=== PATIENT | female | born 1995 | race Two or more races ===

== ENCOUNTER 2024-06-02 22:56 | Emergency (ER) | payer MEDICAID, SELFPAY ==
[2024-06-02 22:58] VITALS: BMI 34.0
[2024-06-02 23:07] VITALS: BP 142/86; PULSE 71; RESP 20; TEMP 36.6; O2SAT 98
[2024-06-02] MEDS: TETRACAINE PF OP SOL 0.5% 4 ML DRPETTE 1 DROP LEFT EYE (23:36)
[2024-06-03] MEDS: FLUORESCEIN SOD 1 MG STRP BOTH EYES (00:02)
[2024-06-03] MEDS: TOBRAMYCIN OP SOL 0.3% 5 ML BTL LEFT EYE (00:03)
--- NOTE | 2024-06-03 00:04 | EDNOTE_ITS ---
ED Eye Problem RME/HPI General Chief complaint: Eye Problems Stated complaint: LEFT EYE PAIN AND HEADACHE Time Seen by Provider: 06/02/24 23:21 Arrival date/time: 06/02/24 22:56 28F with no significant PMH presents to ED with L eye pain after her brother accidentally poked her in the eye. Patient denies vision changes. Patient does wear contacts. Limitations: no limitations Related Data Home Medications ?Medication ?Instructions ?Recorded ?Confirmed ferrous sulfate 325 mg (65 mg 325 mg PO QDAY 07/31/17 07/31/17 iron) tablet (Iron (ferrous sulfate)) Previous Rx's ?Medication ?Instructions ?Recorded tramadol 37.5 mg-acetaminophen 325 1 tab PO TID PRN pa in #15 tabs 11/07/21 mg tablet (Ultracet) cyclobenzaprine 5 mg tablet 5 mg PO TID PRN muscle spa sm #30 09/30/22 tabs Allergies Allergy/AdvReac Type Severity Reaction Status Date / Time latex Allergy Rash Verified 06/02/24 22:58 Past Medical History Past Medical History NEUROLOGIC: Negative Neurological Disorders CARDIAC: Negative Cardiac Disorders or Congestive Heart Failure RESPIRATORY: Negative Chronic Obstructive Pulmonary Disease (COPD) GASTROINTESTINAL: Negative Gastrointestinal Disorders GENITOURINARY: Negative Genitourinary Disorders or Renal Disease MUSCULOSKELETAL: Negative Musculoskeletal Disorders ENDOCRINE: Negative Endocrine Disorders, Diabetes Mellitus Type 1 or Diabetes Mellitus Type 2 HEMATOLOGIC: Negative Blood Disorders OTHER HISTORY: Negative Autoimmune Disease Family History FAMILY HISTORY: Negative Family Cancer, Family Surgery or Family Anesthesia Reaction Surgical History SURGICAL: Negative Section Social History SMOKING STATUS: Never smoker ED Exam General Limitations: Present no limitations General appearance: Present alert and in no apparent distress Head Head exam: Present atraumatic Eye Eye exam: Present normal appearance, PERRL and EOMI ENT ENT exam: Present normal exam, normal oropharynx and mucous membranes moist Neck Neck exam: Present normal inspection, full ROM and trachea midline Chest Chest inspection: Present normal inspection and symmetric chest wall rise Respiratory Respiratory exam: Present normal lung sounds bilaterally Cardiovascular Cardiovascular exam: Present regular rate, normal rhythm and normal heart sounds Abdominal Exam Abdominal exam: Present soft and normal bowel sounds Extremities Exam Extremities exam: Present normal inspection and full ROM Back Exam Back exam: Present normal inspection and full ROM Neurological Exam Neurological exam: Present alert, oriented X3 and CN II-XII intact Psychiatric Psychiatric exam: Present normal affect and normal mood Skin Skin exam: Present warm, dry, intact and normal color Course Quality Measures none Orders Category Date Time Status Jaimes Lamp to Bedside X1 Care 06/02/24 23:22 Active Fluorescein Sodium [[id number]] Med 06/02/24 23:45 Discontinued 1 mg BOTH EYES X1 ONE TETRACAINE Op Michell 0.5% [Pontocaine Op Michell 0.5%] Med 06/02/24 23:22 Disc ontinued 1 drop LEFT EYE X1 ONE Tobramycin Op Michell 0.3% [Tobrex Op Michell 0.3%] Med 06/02/24 23:51 Discontinued See Dose Instructions LEFT EYE X1 ONE Vital Signs Vital signs: Vital Signs Temperature 97.9 F 06/02/24 23:07 Pulse Rate 71 06/02/24 23:07 Respiratory Rate 20 06/02/24 23:07 Blood Pressure 142/86 H 06/02/24 23:07 Pulse Oximetry (%) 98 06/02/24 23:07 Oxygen Delivery Method Room Air 06/02/24 23:07 O2 at 98% on RA and WNLs Eye MDM Narrative MDM Narrative:: 28F with no significant PMH presents to ED with L eye pain after her brother accidentally poked her in the eye. Patient denies vision changes. Patient does wear contacts. Physical exam reveals L eye conjunctivitis. No discharge. Normal pupil response and EOM. Patient is afebrile, calm, and alert. Wood's lamp exam reveals L corneal abrasion. Meds and alcoholic counselor given. Patient data External records reviewed:: [facility] [place] previous records Clinical information provided by:: patient Social determinants that could affect healthcare access:: none Patient has the following chronic illnesses:: none How is presenting disease/condition affected by chronic disease/condition?: no chronic disease Evaluation data The following diagnostics were reviewed and interpreted by me:: other (specify) (none) Lab and/or radiology exams considered but not ordered:: not ordered Interpretation Summary: n/a Medications / Prescriptions Medications or Prescriptions considered but not ordered:: ordered Medication administrations:: Medication Administration History Discontinued Medications Fluorescein Sodium (Fluorescein Sod 1 Mg Strp) 1 mg BOTH EYES X1 ONE Stop: 06/02/24 23:46 Tetracaine HCl (Tetracaine Pf Op Michell 0.5% 4 Ml Drpette) 1 drop LEFT EYE X1 ONE Stop: 06/02/24 23:23 Last Admin: 06/02/24 23:36 Dose: 1 drop Documented By: Tobramycin Sulfate (Tobramycin Op Michell 0.3% 5 Ml Btl) 0 drop LEFT EYE X1 ONE Stop: 06/02/24 23:52 above Consultations Consultation(s) initiated? (list below): No Diagnosis Eye Problem Differential Diagnosis: corneal abrasion, conjunctivitis, acute iritis, hyphema, periorbital cellulitis, subconjunctival hemorrhage, glaucoma, corneal ulcer and ruptured globe Most likely diagnosis given after review of the tests above:: corneal abrasion Admission Indicated Admission indicated?: not indicated Admission Request Was there a request for admission?: No Disposition Plan Disposition Plan: Discharge Discharge Attestation Discharge Attestation: The patient and all family members were given an opportunity to ask questions and understood the discharge instructions. Discharge instructions specifically effects, indications for sooner follow up or return to the emergency department, and the expected course of current diagnosis. Patient condition: Stable Discharge Plan Plan Patient Disposition: HOME (Self Care) Disposition Comment: Stable Prescriptions/Referrals Prescriptions/Med Rec: No Action tramadol-acetaminophen [Ultracet] 37.5-325 mg tablet 1 tab PO TID PRN (Reason: pain) Qty: 15 0RF ferrous sulfate [Iron (ferrous sulfate)] 325 mg (65 mg iron) Tablet 325 mg PO QDAY cyclobenzaprine 5 mg tablet 5 mg PO TID PRN (Reason: muscle spasm) Qty: 30 0RF Problem List Clinical Impression: Corneal abrasion Patient/Caregiver Discharge Instructions Education Materials: ED Corneal Abrasion Additional Instructions: Please follow-up with PCP within 24-48 hours and return immediately if symptoms worsen. See eye doctor soon. Use med 2 drops 4x per day for 5 days. Print Language: Kazakh Stand Alone Forms: Patient Portal Info Letter HEMANTH/CHELY Supervising Physician HEMANTH/CHELY Supervising Physician: Dr. Moreira
== END 2024-06-03 00:11 | disposition home or self-care (01) ==
PROVIDERS: Emergency Provider Emergency Medicine; PCP Family Medicine
DX: S05.02XA Injury of conjunctiva and corneal abrasion without foreign body, left eye, initial encounter (principal); W50.0XXA Accidental hit or strike by another person, initial encounter
CPT/HCPCS: 99283

== ENCOUNTER 2024-12-05 14:10 | Emergency (ER) | payer MEDICAID, SELFPAY ==
[2024-12-05 14:27] VITALS: BP 118/75; PULSE 78; RESP 16; TEMP 37; O2SAT 98
--- NOTE | 2024-12-05 14:44 | PD.EDWOUND ---
ED Wound/Laceration-RME/HPI General Chief Complaint: Wound/Laceration Stated Complaint: LAC ON R) PALM Time Seen by Provider: 12/05/24 14:44 Source: patient Arrival date/time: 12/05/24 14:10 29-year-old female with no known medical history presents to the emergency room with a chief complaint of a laceration to her right palm while cutting meat 1 hour ago. Mode of arrival: ambulatory Limitations: no limitations Related Data Home Medications ?Medication ?Instructions ?Recorded ?Confirmed ferrous sulfate 325 mg (65 mg 325 mg PO QDAY 07/31/17 07/31/17 iron) tablet (Iron (ferrous sulfate)) Previous Rx's ?Medication ?Instructions ?Recorded tramadol 37.5 mg-acetaminophen 325 1 tab PO TID PRN pain #15 tabs 11/07/21 mg tablet (Ultracet) cyclobenzaprine 5 mg tablet 5 mg PO TID PRN muscle spasm #30 09/30/22 tabs Allergies Allergy/AdvReac Type Severity Reaction Status Date / Time latex Allergy Rash Verified 12/05/24 14:13 Review of Systems Review of Systems Systems Reviewed: All systems reviewed, normal except as documented Constitutional Constitutional: Reports system reviewed and no additional complaints, except as documented, Denies fatigue, Denies fever(s), Denies headache(s) and Denies weakness Eyes Eyes: Reports system reviewed and no additional complaints, except as documented, Denies blurry vision and Denies change in vision ENT Ears, Nose, Mouth, and Throat: Reports system reviewed and no additional complaints, except as documented, Denies otalgia, Denies headache(s), Denies nasal congestion, Denies throat swelling and Denies vertigo Cardiovascular Cardiovascular: Reports system reviewed and no additional complaints, except as documented, Denies chest pain, Denies dyspnea and Denies dyspnea on exertion Respiratory Respiratory: Reports system reviewed and no additional complaints, except as documented, Denies chest congestion, Denies cough, Denies dyspnea, Denies dyspnea on exertion and Denies wheezing Gastrointestinal Gastrointestinal: Reports system reviewed and no additional complaints, except as documented, Denies abdominal pain, Denies cramping, Denies nausea and Denies vomiting Genitourinary Genitourinary: Reports system reviewed and no additional complaints, except as documented Musculoskeletal Musculoskeletal: Reports system reviewed and no additional complaints, except as documented and Denies back pain Integumentary/Breasts Skin/Breast: Reports system reviewed and no additional complaints, except as documented and Reports wounds Neurologic Neurologic: Reports system reviewed and no additional complaints, except as documented, Denies confusion, Denies headache(s), Denies lack of coordination, Denies vertigo and Denies weakness Psychiatric Psychiatric: Reports system reviewed and no additional complaints, except as documented, Denies anxiety, Denies confusion, Denies depression, Denies paranoia, Denies suicidal ideation and Denies tactile hallucinations Endocrine Endocrine: Reports system reviewed and no additional complaints, except as documented and Denies fatigue Hematologic/Lymphatic Hematologic/Lymphatic: Reports system reviewed and no additional complaints, except as documented and Denies lymphadenopathy Allergic/Immunologic Allergic/Immunologic: Reports system reviewed and no additional complaints, except as documented, Denies throat swelling, Denies urticaria and Denies wheezing Past Medical History Past Medical History NEUROLOGIC: Negative Neurological Disorders CARDIAC: Negative Cardiac Disorders or Congestive Heart Failure RESPIRATORY: Negative Chronic Obstructive Pulmonary Disease (COPD) GASTROINTESTINAL: Negative Gastrointestinal Disorders GENITOURINARY: Negative Genitourinary Disorders or Renal Disease MUSCULOSKELETAL: Negative Musculoskeletal Disorders ENDOCRINE: Negative Endocrine Disorders, Diabetes Mellitus Type 1 or Diabetes Mellitus Type 2 HEMATOLOGIC: Negative Blood Disorders OTHER HISTORY: Negative Autoimmune Disease Family History FAMILY HISTORY: Negative Family Cancer, Family Surgery or Family Anesthesia Reaction Surgical History SURGICAL: Negative Section Social History SMOKING STATUS: Never smoker ED Exam General Limitations: Present no limitations General appearance: Present alert and in no apparent distress Head Head exam: Present atraumatic Eye Eye exam: Present normal appearance, PERRL and EOMI ENT ENT exam: Present normal exam, normal oropharynx and mucous membranes moist Neck Neck exam: Present normal inspection, full ROM and trachea midline Chest Chest inspection: Present normal inspection and symmetric chest wall rise Respiratory Respiratory exam: Present normal lung sounds bilaterally Cardiovascular Cardiovascular exam: Present regular rate, normal rhythm and normal heart sounds Abdominal Exam Abdominal exam: Present soft and normal bowel sounds Extremities Exam Extremities exam: Present normal inspection and full ROM Expanded Upper Extremity Exam Shoulder exam: Present normal inspection Arm exam: Present normal inspection Elbow exam: Present normal inspection Forearm/Wrist exam: Present normal inspection Hand exam: Present laceration Hand L/R front image:  1. laceration (0.5 cm laceration to the center of the palm) Back Exam Back exam: Present normal inspection and full ROM Neurological Exam Neurological exam: Present alert, oriented X3 and CN II-XII intact Psychiatric Psychiatric exam: Present normal affect and normal mood Skin Skin exam: Present warm, dry, intact and normal color Course Quality Measures none Orders Category Date Time Status Set Up Suture Tray STAT Care 12/05/24 14:38 Active Wound Care NOW Care 12/05/24 14:38 Active Lidocaine 1% 20 ml [Xylocaine 1% 20 ML] Med 12/05/24 14:38 Discontinued 20 ml INFL X1 ONE TET,DIP/PERT AC (Adult)-Tdap [Boostrix Adult (Tdap) Med 12/05/24 14:38 Discontinued Vacc] 0.5 ml IMI .ONCE ONE Vital Signs Vital signs: Vital Signs Temperature 98.6 F 12/05/24 14:27 Pulse Rate 78 12/05/24 14:27 Respiratory Rate 16 12/05/24 14:27 Blood Pressure 118/75 12/05/24 14:27 Pulse Oximetry (%) 98 12/05/24 14:27 Oxygen Delivery Method Room Air 12/05/24 14:27 PROCEDURES: Laceration Laceration 1: Site: hand Side (If applicable): right Size (cm): 0.5 Description: linear Depth: simple, single layer Local Anesthetic: lidocaine 1% Amount of anesthesia used (mL): 3 Pre-repair: irrigated extensively Skin layer closed with: nylon Suture size (cm): 4-0 Number of sutures: 2 Technique: simple, interrupted Wound / Laceration MDM Narrative MDM Narrative:: 29-year-old female with no known medical history presents to the emergency room with a chief complaint of a laceration to her right palm while cutting meat 1 hour ago. The laceration occured 1 hour ago The mechanism of injury was from a kitchen knife while cutting meat Sensation is intact. There is full ROM. There is no exposed tendons. No foreign bodies. Lidocaine 1% was used for anesthesia. The wound was irrigated extensively with normal saline. 2 sutures were placed. A dressing was placed. There were no complications. Patient was educated to keep the area clean and dry for 24 hours, then clean daily with soap and water. Patient was educated to return for any signs of infection including swelling pain redness pus or fever and to make an appointment with primary care provider in 48 hours. Patient was educated to follow up with primary or return to emergency room for suture removal in the next 7-10 days. Patient data External records reviewed:: [facility] previous records Clinical information provided by:: patient Social determinants that could affect healthcare access:: none Patient has the following chronic illnesses:: No chronic illness How is presenting disease/condition affected by chronic disease/condition?: no chronic disease Evaluation data The following diagnostics were reviewed and interpreted by me:: lab results and radiology exam(s) Lab and/or radiology exams considered but not ordered:: Labs and radiology exams considered and ordered Interpretation Summary: N/A Medications / Prescriptions Medications or Prescriptions considered but not ordered:: Medication given Medication administrations:: Medication Administration History Discontinued Medications Diphtheria/Tetanus/Acell Pertussis (Diphth,Pertuss(Acell),Tet Vac 0.5 Ml Syr- Adult) 0.5 ml IMi .ONCE ONE Stop: 12/05/24 14:39 Last Admin: 12/05/24 16:05 Dose: 0.5 ml Documented By: KENYA Lidocaine HCl (Lidocaine Hcl 1% 20 Ml Vial) 20 ml INFL X1 ONE Stop: 12/05/24 14:39 Last Admin: 12/05/24 16:06 Dose: 20 ml Documented By: KENYA Comments: USED BY PROVIDER Tetanus updated Consultations Consultation(s) initiated? (list below): No Diagnosis Wound Differential Diagnosis: laceration, abrasion and avulsion of skin Most likely diagnosis given after review of the tests above:: Laceration Admission Indicated Admission indicated?: not indicated Admission Request Was there a request for admission?: No Disposition Plan Disposition Plan: Discharge Discharge Attestation Discharge Attestation: The patient and all family members were given an opportunity to ask questions and understood the discharge instructions. Discharge instructions specifically effects, indications for sooner follow up or return to the emergency department, and the expected course of current diagnosis. Patient condition: Stable Discharge Plan Plan Patient Disposition: HOME (Self Care) Discharge Disposition comment: Stable Prescriptions/Referrals Prescriptions/Med Rec: No Action tramadol-acetaminophen [Ultracet] 37.5-325 mg tablet 1 tab PO TID PRN (Reason: pain) Qty: 15 0RF ferrous sulfate [Iron (ferrous sulfate)] 325 mg (65 mg iron) Tablet 325 mg PO QDAY cyclobenzaprine 5 mg tablet 5 mg PO TID PRN (Reason: muscle spasm) Qty: 30 0RF Problem List Clinical Impression: Laceration Patient/Caregiver Discharge Instructions Additional Instructions: Please follow-up with your primary care provider in the next 24 to 48 hours 2 sutures were used to close and approximate the wound. Please keep the wound clean and dry for the next 24 hours afterwards to clean it with soap and water You can return in 7 to 10 days for suture removal For any evidence of worsening signs or symptoms return to the emergency room immediately Print Language: Latvian Stand Alone Forms: Courtney Award Info., Work/School Release, Patient Portal Info Letter PA/MANAGER FRAUD Supervising Physician PA/MANAGER FRAUD Supervising Physician: Dr. Sorenson
[2024-12-05] MEDS: DIPHTH,PERTUSS(ACELL),TET VAC 0.5 ML SYR- ADULT IMi (16:05)
[2024-12-05] MEDS: LIDOCAINE HCL 1% 20 ML VIAL INFL (16:06)
== END 2024-12-05 17:38 | disposition home or self-care (01) ==
LOC: SERX 16:31
PROVIDERS: Emergency Provider Emergency Medicine; PCP Family Medicine; Referring Provider Emergency Medicine
DX: S61.411A Laceration without foreign body of right hand, initial encounter (principal); W26.0XXA Contact with knife, initial encounter; Y93.G1 Activity, food preparation and clean up; Z23 Encounter for immunization
CPT/HCPCS: 12001; 90471; 90715; 99284; J3490